=== PATIENT | female | born 1945 | race Caucasian/White ===

== ENCOUNTER 2018-09-29 14:59 | Emergency (ER) | payer BC, MEDICAID ==
[~2018-09-29] VITALS: Ht 160 cm; Wt 89.4 kg
[2018-09-29 15:04] VITALS: Ht 160 cm; Wt 89.4 kg
[2018-09-29 16:21] VITALS: BP 147/92
== END 2018-09-29 17:00 | disposition home or self-care (01) ==
LOC: ED 14:59
DX: R05 Cough (principal); M79.10 Myalgia, unspecified site; R53.1 Weakness; R50.9 Fever, unspecified; J34.89 Other specified disorders of nose and nasal sinuses

== ENCOUNTER 2019-05-11 01:10 | Emergency (ER) | payer BC, MEDICAID ==
[~2019-05-11] VITALS: Ht 160 cm; Wt 89.1 kg
[2019-05-11 01:33] VITALS: Ht 160 cm; Wt 89.1 kg
[2019-05-11 03:13] VITALS: BP 123/56
[2019-05-11 03:56] LABS: microscopic required? YES; urine erythrocyte 2+ (NEGATIVE)
== END 2019-05-11 03:13 | disposition home or self-care (01) ==
LOC: ED 01:10
PROVIDERS: Specialist
DX: N39.0 Urinary tract infection, site not specified (principal); M79.10 Myalgia, unspecified site
CPT/HCPCS: 87804; J1885; Q0092